=== PATIENT | female | born 2000 | race Two or more races ===

== ENCOUNTER 2025-03-16 04:30 | Emergency (ER) | payer MEDICAID, SELFPAY ==
[2025-03-16 04:37] VITALS: BP 133/80; PULSE 104; RESP 18; TEMP 36.6; O2SAT 98; BMI 29.2
[2025-03-16 05:03] LABS: Collection Type, Urine Clean Catch
[2025-03-16 05:03] LABS: Basophils # (Auto) 0.0 Thou/mm3 (0.0-0.2); Basophils % (Auto) 0 % (0-2.5); Eosinophils # (Auto) 0.1 Thou/mm3 (0.0-0.5); Eosinophils % (Auto) 1 % (0-10); Hematocrit 35.1 % (36.0-46.0); Hemoglobin 12.2 g/dL (12.0-16.0); Immature Granulocytes Auto 0.07 Thou/mm3 (0.00-0.00); Lymphocytes # (Auto) 2.8 Thou/mm3 (1.0-4.8); Lymphocytes % (Auto) 20 % (10-50); Mean Corpuscular HGB Conc 34.8 g/dl (31.0-37.0); Mean Corpuscular Hemoglobin 29.5 pg (25.0-35.0); Mean Corpuscular Volume 85 fL (80-100); Monocytes # (Auto) 0.8 Thou/mm3 (0.0-0.8); Monocytes % (Auto) 5 % (0-12); Neutrophils # (Auto) 10.3 Thou/mm3 (1.8-7.7); Neutrophils % (Auto) 73 % (37-80); Nucleated Red Blood Cell # 0.00 Thou/mm3 (0.00-0.00); Nucleated Red Blood Cell % 0 /100 WBC (0); Platelet Count 368 Thou/mm3 (140-440); RDW Standard Deviation 40.1 fL (36.4-46.3); Red Blood Count 4.13 Miln/mm3 (4.00-5.20); White Blood Count 14.1 Thou/mm3 (3.6-11.0)
[2025-03-16 05:04] VITALS: BP 103/56; PULSE 84; RESP 14; TEMP 37; O2SAT 99
[2025-03-16 05:18] LABS: Bacteria,Urine 2+; Bilirubin,Urine Negative (Negative); Blood,Urine Negative (Negative); Clarity,Urine Turbid (Clear/Hazy); Color,Urine Lt-Yellow (Lt Yel-Yel); Glucose, Urine Negative (Negative); Hyaline Casts,Urine < 1 /hpf (0-1); Ketones,Urine Negative (Negative); Leukocyte Esterase,Urine Positive (Negative); Nitrite,Urine Negative (Negative); PH,Urine 6.0 (5.0-7.0); Protein,Urine Negative (Neg - Trace); RBC,Urine 5 /hpf (0-3); Specific Gravity,Urine 1.014 (1.001-1.035); Squamous Epithelial Cell,Urine 8 /hpf (0-5); Urobilinogen,Urine Negative mg/dL (0.0-1.0); WBC,Urine 12 /hpf (0-5)
--- NOTE | 2025-03-16 05:21 | EDNOTE_ITS ---
ED Abdominal Pain RME/HPI General Chief Complaint: Abdominal Pain Stated complaint: ABD PAIN Time seen by provider: 03/16/25 05:20 Arrival date/time: 03/16/25 04:30 RME / HPI RME / HPI narrative: DR. SUGGS MAIN ED EVALUATION: Patient with EGA 12 weeks reportedly awoke at 2 AM with diffuse abdominal cramping/pressure-like sensation. No vaginal bleeding, reports nausea without em esis. No fever or chills. PMH: Negative PSH: Negative Allergies: Negative Social: Negative Related Data Previous Rx's ?Medication ?Instructions ?Recorded cefdinir 300 mg capsule 300 mg PO BID #14 caps 03/16 Allergies Allergy/AdvReac Type Severity Reaction Status Date / Time No Known Allergies Allergy Verified 03/16/25 04:31 Review of Systems Review of Systems Systems Reviewed: All systems reviewed, normal except as documented ED Exam Narrative Physical exam: GEN. APPEARANCE: The patient is alert awake oriented X-3 under no distress, lying down comfortably, does not look ill/toxic. Patient has good eye contact. Patient is cooperative. VITALS: All vitals were reviewed and the pulse ox is 99%, which is normal accor ding to my interpretation HEENT: Normocephalic, atraumatic and nontender. Pupils are equal and reactive. Oral mucosa is moist. NECK: Supple, nontender, no meningismus, no JVD. There is no thyromegaly and no lymphadenopathy. CHEST: Nontender on palpation no deformity and no crepitus. CARDIOVASCULAR: Heart regular rhythm, no murmur or gallop rub or extra beats. LUNGS: Clear to auscultation bilaterally with symmetrical chest rise. No laboring tachypnea or wheezing. No intercostal subcostal retraction. No rales and no rhonchi. ABDOMEN: Soft, flat, mild diffuse lower abdominal tenderness, no guarding or peritoneal findings noted. There are no abnormal masses palpated. No pulsatile masses or bruits. Active and normal bowel sounds. EXTREMITIES: Normal inspection and palpation. No edema. No cyanosis. Patient is able to move all 4 extremities well SKIN: Warm and dry, no rashes noted. MUSCULOSKELETAL: No lumbar or midline bony tenderness. There is no CVA tenderness. No paraspinal muscle spasm or tenderness. NEURO: Cranial nerves II through XII grossly intact. There are no focal neurologic deficits noted. GCS is 15 PSYCHIATRIC: Patient is in normal mood and affect, cooperative. LYMPHATICS: No major lymphadenopathy noted. Course Quality Measures none Orders Category Date Time Status Beta HCG,Quantitative Stat Lab 03/16/25 04:58 Results CBC Stat Lab 03/16/25 04:58 Completed CMP [Comprehensive Metabolic Panel] Stat Lab 03/16/25 04:58 Results UA, C/S IF [Urinalysis, C/S if Indicated] Stat Lab 03/16/25 04:54 Completed Urine Culture Stat Lab 03/16/25 04:54 Received cefTRIAXone/D5w 1gm IV premix [Rocephin/D5w 1gm IV Med 03/16/25 05:41 Active premix] 1 gm in 50 ml IV X1 Vital Signs Vital signs: Vital Signs Temperature 97.9 F 03/16/25 04:37 Pulse Rate 104 H 03/16/25 04:37 Respiratory Rate 18 03/16/25 04:37 Blood Pressure 133/80 H 03/16/25 04:37 Pulse Oximetry (%) 98 03/16/25 04:37 Oxygen Delivery Method Room Air 03/16/25 04:37 Abdominal Pain MDM MDM Narrative MDM Narrative:: Scribe Attestation: Maren Anderson am scribing for and in the presence of Dr. Parekh. Provider Notation: Although this document has been carefully reviewed, there may still be some phonetic and other typographical errors. These errors are purely grammatical due to imperfections in the software program and should not be construed in any way to compromise the substance of the patient's medical care during this visit. Patient with EGA 12 weeks reportedly awoke at 2 AM with diffuse abdominal cramping/pressure-like sensation. No vaginal bleeding, reports nausea without emesis. Please see PE findings. Laboratory markers demonstrate WBC and hemoglobin of with normal platelet count. Serum chemistries are essentially unremarkable. UA demonstrates UTI. Patient hydrated with saline and administered imperic ABX. Please see AM physician's note for final disposition. Final diagnosis include first trimester with abdominal pain and UTI. Patient data External records reviewed:: [facility] previous records (No prior ED records available for review) Clinical information provided by:: patient Social determinants that could affect healthcare access:: none Patient has the following chronic illnesses:: None reported How is presenting disease/condition affected by chronic disease/condition?: no chronic disease Evaluation data The following diagnostics were reviewed and interpreted by me:: lab results Lab and/or radiology exams considered but not ordered:: None Interpretation Summary: See MDM above Medications / Prescriptions Medications or Prescriptions considered but not ordered:: None Medication administrations:: Medication Administration History Ceftriaxone Sodium/Dextrose (Rocephin/D5w 1gm Iv Premix) 1 gm in 50 mls @ 100 mls/hr IV X1 ONE Stop: 03/16/25 06:10 See above if any Consultations Consultation(s) initiated? (list below): No Diagnosis Differential diagnosis abdominal pain: abdominal pain, acute appendicitis, calculus of kidney, constipation, gastroenteritis and small bowel obstruction Most likely diagnosis given after review of the tests above:: First trimester with abdominal pain, UTI Admission Indicated Admission indicated?: not indicated Explain why admission is indicated or not indicated:: Pending final disposition Admission Request Was there a request for admission?: No Disposition Plan Disposition Plan: other (specify) (Signed out to Dr. Powell at 6 AM) Discharge Plan Plan Patient Disposition: HOME (Self Care) Prescriptions/Referrals Prescriptions/Med Rec: New cefdinir 300 mg capsule 300 mg PO BID Qty: 14 0RF Problem List Clinical Impression: UTI (urinary tract infection), Abdominal pain during in first trimester Patient/Caregiver Discharge Instructions Discharge Activity: activity as tolerated Education Materials: ED CYSTITIS Female Adult Additional Instructions: Discharge instructions from Dr. Powell: 1. After evaluation, you have UTI (see attached handout). 2. Take cefdinir to kill the germs causing the infection. 3. For good hydration, increase oral fluid and maintain clear urine. If dark or yellow, increase oral fluid. 4. See a private doctor on 03/19/2025 for recheck. Ask to check the final urine culture results from today to make sure cefdinir doesn't need to be changed due to resistance. 5. Seek immediate medical care with worsening, fever, or with any concerns. Print Language: Malaysian Stand Alone Forms: [employer] Award Info., Patient Portal Info Letter
[2025-03-16 05:23] LABS: Culture Indicated,Urine Yes
[2025-03-16 05:25] LABS: Alanine Aminotransferase 19 U/L (10-49); Albumin, Serum 4.9 gm/dL (3.5-5.0); Albumin/Globulin Ratio 2.3 (1.2-2.2); Alkaline Phosphatase 85 U/L (46-116); Anion Gap 10 (7-16); Aspartate Amino Transferase 20 U/L (0-34); BUN/Creatinine Ratio 10 Ratio (12-20); Bilirubin,Total 0.2 mg/dL (0.3-1.2); Blood Urea Nitrogen < 5 mg/dL (9-23); Calcium 10.1 mg/dL (8.3-10.6); Calcium (Corrected) 10.1 mg/dL (8.5-10.1); Carbon Dioxide 24.0 mMol/L (20.0-31.0); Chloride 105 mMol/L (98-107); Creatinine (Component) 0.5 mg/dL (0.6-1.3); Estimated Creatinine Clearance 144.3 mL/min (>60); Globulin 2.1 gm/dL (2.3-3.5); Glucose 91 mg/dL (74-106); Osmolality,Calculated 274 (275-295); Potassium 3.4 mMol/L (3.4-5.1); Sodium 139 mMol/L (136-145); Total Protein 7.0 gm/dL (5.7-8.2); eGFR > 60 See Note
--- NOTE | 2025-03-16 05:41 | PD.EDADDENDU ---
Emergency Room Addendum Addendum Narrative: I took over the care from previous shift physician, Dr. Parekh at _0600_ on _03/16/25_.? See previous notes for complete H & P and ED course.?? I reviewed all diagnostic test results. Blood tests remarkable for WBC 14.1 and beta-hCG [id number]. UA showed leukocyte esterase, 12 WBC, and 2+ bacteria. Diagnoses include: UTI Treatment here included: Rocephin 1 g IV Recommend outpatient management. Based on my best medical judgment, made decision no further evaluation or treatment indicated at this time.? Patient understands and agrees to the discharge instructions customized and printed, see below. Discharge instructions from Dr. Powell: 1. After evaluation, you have UTI (see attached handout). 2. Take cefdinir to kill the germs causing the infection. 3. For good hydration, increase oral fluid and maintain clear urine. If dark or yellow, increase oral fluid. 4. See a private doctor on 03/19/2025 for recheck. Ask to check the final urine culture results from today to make sure cefdinir doesn't need to be changed due to resistance. 5. Seek immediate medical care with worsening, fever, or with any concerns. Dyllan Powell MD
[2025-03-16] MEDS: cefTRIAXone/D5w 1gm IV premix 1 GM/50 ML BAG IV (05:56)
[2025-03-16] MEDS: SODIUM CHLORIDE 0.9% 1000 ML 1,000 ML 999 ML IV (06:07)
[2025-03-16 06:29] VITALS: BP 97/63; PULSE 80; RESP 14; TEMP 37; O2SAT 99
[2025-03-16 06:34] VITALS: TEMP 37
== END 2025-03-16 06:36 | disposition home or self-care (01) ==
LOC: SERX 06:14
PROVIDERS: Emergency Medicine; Emergency Provider Emergency Medicine
DX: O23.41 Unspecified infection of urinary tract in pregnancy, first trimester (principal); Z3A.12 12 weeks gestation of pregnancy
CPT/HCPCS: 36415; 80053; 81001; 84702; 85025; 87086; 96365; 99283; J0696; J7030